=== PATIENT | female | born 1990 | race Caucasian/White ===

== ENCOUNTER 2019-11-25 10:27 | Emergency (ER) | payer OTHER ==
[~2019-11-25] VITALS: Ht 170.2 cm; Wt 77.3 kg
[2019-11-25 10:28] VITALS: BP 137/85
== END 2019-11-25 11:06 | disposition home or self-care (01) ==
LOC: EMS 10:35
DX: B34.9 Viral infection, unspecified (principal); Z03.818 Encounter for observation for suspected exposure to other biological agents ruled out
CPT/HCPCS: 87635